=== PATIENT | male | born 1980 | race Caucasian/White ===

== ENCOUNTER 2017-11-20 02:24 | Emergency (ER) | payer MEDICAID ==
[~2017-11-20] VITALS: Ht 177.8 cm; Wt 98.8 kg
[~2017-11-20 02:24] MED LIST: CLIN-73 PO; HYDR-3498 PO
[2017-11-20 02:31] VITALS: Ht 177.8 cm; Wt 98.8 kg
[2017-11-20] MEDS ORDERED: CEPH-443 PO (04:29)
[2017-11-20] MEDS ORDERED: IBUP800T25 PO (04:29)
[2017-11-20] MEDS ORDERED: SULF1TAB31 PO (04:29)
--- NOTE | 2017-11-20 04:41 | ERD ---
ER Documentation Chief Complaint Chief Complaint swelling both arms for a few days, iv drug use HPI 37-year-old male complaining of pain and swelling in his arms for 4 weeks. Patient is an IV drug user, inject himself daily with heroin and meth. Patient stated that he has been squeezing them, and they have been draining pus. Patient stated that he had been injecting himself in by his knees and on the side of his neck lately because he can no longer injected his arms. Denies fever or chills. Denies suicidal or homicidal ideation. ROS All systems reviewed and are negative except as per history of present illness. Medications Home Meds Active Scripts Sulfamethoxazole/Trimethoprim* (Bactrim Ds* Tablet) 1 Each Tablet, 1 TAB PO BID , #14 TAB Prov:CAMERON GÓMEZ [employer] 11/20/17 Cephalexin* (Keflex*) 500 Mg Capsule, 500 MG PO QID for 7 Days, CAP Prov:CAMERON GÓMEZ. [employer] 11/20/17 Ibuprofen* (Motrin*) 800 Mg Tab, 800 MG PO Q6H Y for PAIN AND OR ELEVATED TEMP, #30 TAB Prov:CAMERON GÓMEZ. [employer] 11/20/17 Hydrocodone Bit-Acetaminophen* ([place]*) 5-325 Mg Tab, 1 TAB PO Q6 Y for PAIN, # 7 TAB Prov:CARMENLIONEL I. [employer] 04/03/16 Clindamycin Hcl* (Clindamycin Hcl*) 300 Mg Capsule, 300 MG PO TID for 10 Days, CAP Prov:CARMENLIONEL I. [employer] 04/03/16 Allergies Allergies: Coded Allergies: No Known Allergy (Unverified , 04/03/16) PMhx/Soc Medical and Surgical Hx: pt denies Medical Hx, pt denies Surgical Hx History of Surgery: No Anesthesia Reaction: No Hx Neurological Disorder: No Hx Respiratory Disorders: No Hx Cardiac Disorders: No Hx Psychiatric Problems: No Hx Miscellaneous Medical Probl: Yes Hx Alcohol Use: No Hx Substance Use: Yes (Heroin 03/31/16) Hx Tobacco Use: Yes Smoking Status: Never smoker Physical Exam Vitals Vital Signs Date Time Temp Pulse Resp B/P Pulse Ox O2 Delivery O2 Flow Rate FiO2 11/20/17 02:31 98.8 102 20 138/84 100 Physical Exam General: Well-developed, well-nourished, conscious and coherent, in no distress Skin: Warm and dry, good texture and turgor. Multiple cellulitis and open abscesses are noted on bilateral arms, and the right popliteal area. Tender, no active drainage. Head: Normocephalic without evidence of trauma Eyes: Sclera and conjunctivae normal; pupils equal, round, and reactive to light; extraocular movements are intact Chest: Normal AP diameter. Good expansion without retractions. Nontender. Lungs are clear to auscultate bilaterally with good tidal volume Heart: Regular rate and rhythm. No murmur, rub, or gallops heard Extremities: Full range of motion. Good strength bilaterally. No clubbing, cyanosis, or edema. Peripheral pulses are intact. Sensation intact Neuro: Alert and oriented 4, GCS 15. Cranial nerves grossly intact. Motor and sensory exams nonfocal. Moves all extremities. Speech clear. Gait normal Procedures/MDM Well-appearing 37-year-old male with a history of substance abuse and IV drug use present ED with multiple abscesses in cellulitis on his bilateral arms and right leg. There is no area of fluctuance noted, no incision and drainage is indicated at this time. Patient is afebrile, I doubt necrotizing fasciitis. Counseling provided for the patient regarding cessation of drugs. Time of counseling more than 3 minutes. Patient appears well, stable for discharge and outpatient management. Medical decision making shared with patient and family. Education provided to patient and family. Patient and family expressed understanding of the plan. Medications on discharge: Ibuprofen, Bactrim DS, Keflex. Follow-up: Primary care provider in 2-3 days or return to ED if worse. The case was reviewed and discussed with Dr. Underwood, who agrees with the plan of care. Disclaimer: Inadvertent spelling and grammatical errors are likely due to EHR/ dictation software use and do not reflect on the overall quality of patient care. Also, please note that the electronic time recorded on this note does not necessarily reflect the actual time of the patient encounter. Departure Diagnosis: Primary Impression: Cellulitis Site of cellulitis: extremity Site of cellulitis of extremity: upper extremity Laterality: unspecified laterality Qualified Code: L03.119 - Cellulitis of upper extremity, unspecified laterality Additional Impression: Drug abuse Condition: Stable Patient Instructions: Cellulitis, Drug Abuse Referrals: [facility] YOU HAVE RECEIVED A MEDICAL SCREENING EXAM AND THE RESULTS INDICATE THAT YOU DO NOT HAVE A CONDITION THAT REQUIRES URGENT TREATMENT IN THE EMERGENCY DEPARTMENT. FURTHER EVALUATION AND TREATMENT OF YOUR CONDITION CAN WAIT UNTIL YOU ARE SEEN IN YOUR DOCTORS OFFICE WITHIN THE NEXT 1-2 DAYS. IT IS YOUR RESPONSIBILITY TO MAKE AN APPOINTMENT FOR FOLOW-UP CARE. IF YOU HAVE A PRIMARY DOCTOR --you should call your primary doctor and schedule an appointment IF YOU DO NOT HAVE A PRIMARY DOCTOR YOU CAN CALL OUR PHYSICIAN REFERRAL HOTLINE AT IF YOU CAN NOT AFFORD TO SEE A PHYSICIAN YOU CAN CHOSE FROM THE FOLLOWING [facility] [address]. [facility] [address] [facility] [facility] [address] [facility] [facility] [address] [facility]. [facility] [address] [facility]. [facility]. [address] Additional Instructions: Call your primary care doctor TOMORROW for an appointment during the next 2-3 days.See the doctor sooner or return here if your condition worsens before your appointment time. CAMERON GÓMEZ NP Nov 20, 2017 04:41
[2017-11-20 04:50] VITALS: BP 131/86; PULSE 80; RESP 18; TEMP 98.6
== END 2017-11-20 04:52 | disposition home or self-care (01) ==
LOC: FTE 02:24
DX: L03.114 Cellulitis of left upper limb (principal); L03.113 Cellulitis of right upper limb; L03.115 Cellulitis of right lower limb; F11.10 Opioid abuse, uncomplicated; F15.10 Other stimulant abuse, uncomplicated; R40.2412 Glasgow coma scale score 13-15, at arrival to emergency department; Z87.891 Personal history of nicotine dependence
CPT/HCPCS: 99284

== ENCOUNTER 2018-07-13 18:19 | Emergency (ER) | END 2018-07-13 19:05 | disposition left against medical advice (07) ==

== ENCOUNTER 2018-08-25 22:36 | Emergency (ER) | END 2018-08-26 01:25 | disposition left against medical advice (07) ==